=== PATIENT | female | born 1985 | race Caucasian/White ===

== ENCOUNTER 2018-02-01 18:02 | Emergency (ER) | payer OTHER ==
[~2018-02-01] VITALS: Ht 167.6 cm; Wt 89.5 kg
[~2018-02-01 18:02] MED LIST: NOHOMEMEDS
[2018-02-01 18:57] LABS: HEMATOCRIT 38.1 % (36.0-46.0); HEMOGLOBIN 12.6 G/DL (11.9-15.5); MCH 29.2 PG (29.0-34.0); MCHC 33.1 G/DL (30.0-36.0); MCV 88.4 FL (83-99); PLATELET COUNT 241 K/uL (156-360); RBC DIS.WIDTH-CV 12.8 % (11.8-14.6); RBC DIS.WIDTH-SD 41.8 % (39-53); RED BLOOD COUNT 4.31 M/uL (3.80-5.20); WHITE BLOOD COUNT 9.4 K/uL (4.1-10.2)
[2018-02-01 19:17] LABS: CHLORIDE 106 mEq/L (99-109); POTASSIUM 4.5 mEq/L (3.7-5.4); SODIUM 140 mEq/L (136-147)
[2018-02-01 19:19] LABS: GLUCOSE 93 mg/dL (70-99); TROP-I INTERPRETATION NEGATIVE; TROPONIN-I < 0.01 ng/mL (0.0-0.30)
[2018-02-01 19:22] LABS: CREATININE 0.8 mg/dL (0.6-1.3); GFR ESTIMATE (CALCULATED) > 59 mL/min/
[2018-02-01 19:23] LABS: UREA NITROGEN (BUN) 11 mg/dL (9-23)
[2018-02-01 19:31] LABS: QUANTITATIVE HCG < 4.0 MIU/ML
[2018-02-01] MEDS ORDERED: PEPCID20 MG PO (21:08)
[2018-02-01] MEDS ORDERED: CARAFATE1 GM PO (21:08)
[2018-02-01 21:20] VITALS: BP 128/78
== END 2018-02-01 21:22 | disposition home or self-care (01) ==
LOC: EME 18:02
DX: R07.89 Other chest pain (principal); Z82.49 Family history of ischemic heart disease and other diseases of the circulatory system; F17.200 Nicotine dependence, unspecified, uncomplicated
CPT/HCPCS: 71046; 80048; 84484; 84702; 85027; 93005; 99281; 99284